=== PATIENT | female | born 1980 | race Caucasian/White ===

== ENCOUNTER → 2016-07-30 | Outpatient (REF) ==
[~2016-07-30] MED LIST: CEFTIN 250250 MG/TAB PO; CEFTIN500 MG PO; FLAGYL500 MG PO; KETOROLAC10 MG PO; MULTI VITAMINS1 TAB PO; NORCO 325 MG-51 TAB PO; PRENATAL1 TA1 PO; PROBIOTIC-MAJOR PO; PYRIDIUM200 M1 PO; ZOFRAN 4MG T4 MG/TAB PO
== END ==
LOC: WSOH 10:27
DX: Z00.00 Encounter for general adult medical examination without abnormal findings (principal)

== ENCOUNTER 2017-08-22 12:00 | Emergency (ER) | payer OTHER ==
[~2017-08-22] VITALS: Ht 162.6 cm; Wt 86.4 kg
[2017-08-22 12:02] VITALS: TEMP 98.8
[2017-08-22] MEDS ORDERED: AMOXICILLIN 8751 TAB PO (12:26)
[2017-08-22 12:34] VITALS: BP 160/96; PULSE 84
== END 2017-08-22 12:35 | disposition home or self-care (01) ==
LOC: COL.ER 12:00
DX: J01.90 Acute sinusitis, unspecified (principal)